=== PATIENT | female | born 1930 | race Caucasian/White ===

== ENCOUNTER 2017-12-30 17:46 | Emergency (ER) | payer OTHER ==
[~2017-12-30] VITALS: Ht 149.9 cm; Wt 52.2 kg
[~2017-12-30 17:46] MED LIST: ADULT LOW DOSE81 MG PO; CALCIUM 500 WI1 EAC3 PO; COD LIVER OIL1 EACH PO; COMBIVENT INH; CRESTOR10 MG PO; LEVOXYL75 MCG PO; MULTIVITAMINS; PREDNISONE 10 M10 M1 PO; PRILOSEC 20 MG20 MG PO; PURINETHOL50 MG PO; SYNTHROID88 MCG PO; VITAMINC500 PO; ZETIA10 MG PO; [UNRECOGNIZED DRUG - OTHER]
[2017-12-30] MEDS ORDERED: NORVASC5 MG PO (17:57)
[2017-12-30] MEDS ORDERED: ASPIR 8181 MG PO (17:58)
[2017-12-30 18:39] LABS: HEMATOCRIT 41.1 % (37.0-47.0); HEMOGLOBIN 13.6 gm/dL (12.0-15.0); MCH 29.7 pg (26.0-34.0); MCHC 33.1 g/dL (28.0-37.0); MCV 89.6 fL (80.0-100.0); MPV 8.6 fl. (7.2-11.1); NUCLEATED RBCS 0 /100WBC; PLATELET COUNT* 351 thou/uL (150-400); RBC 4.59 mil/uL (4.20-5.00); RDW-CV 13.8 % (10.5-14.5); WBC 13.6 thou/uL (4.0-11.0)
[2017-12-30 18:43] LABS: ANION GAP 11 mmol/L (7-16); BUN 13 mg/dL (7-18); CALCIUM 8.7 mg/dL (8.5-10.1); CHLORIDE 98 mmol/L (98-107); CO2 28 mmol/L (21-32); CREATININE 0.6 mg/dL (0.6-1.3); GLUCOSE 104 mg/dL (70-99); POTASSIUM 3.6 mmol/L (3.5-5.1); SODIUM 137 mmol/L (136-145)
[2017-12-30 18:54] LABS: ALBUMIN 3.8 g/dL (3.4-5.0); ALKALINE PHOSPHATASE 71 U/L (46-116); LIPASE 68 U/L (73-393); NT-PRO BRAIN NAT PEPTIDE 346 pg/mL (<300); SGOT 27 U/L (15-37); SGPT 23 U/L (30-65); TOTAL BILIRUBIN 0.6 mg/dL (<0.1-1.0); TROPONIN-I LEVEL <0.06 ng/mL (<0.06)
[2017-12-30 19:14] LABS: INFLUENZA A ANTIGEN None Detected (None Detect); INFLUENZA B ANTIGEN None Detected (None Detect)
[2017-12-30 19:29] LABS: ABSOLUTE EOSINOPHILS 0.1 thou/uL (0.0-0.7); ABSOLUTE LYMPHOCYTES 2.4 thou/uL (0.8-5.3); ABSOLUTE MONOCYTES 0.5 thou/uL (0.0-1.2); ABSOLUTE NEUTROPHILS 10.5 thou/uL (1.6-8.1); ATYPICAL LYMPHS 5 %; PLATELET ESTIMATE ADEQUATE
[2017-12-30 19:43] LABS: URINE BILIRUBIN NEGATIVE (Negative); URINE BLOOD NEGATIVE (Negative); URINE CLARITY CLEAR; URINE COLOR YELLOW; URINE GLUCOSE-RANDOM NEGATIVE (Negative); URINE KETONES TRACE (Negative); URINE LEUKOCYTES-REFLEX TRACE (Negative); URINE NITRITE-REFLEX NEGATIVE (Negative); URINE PROTEIN NEGATIVE (Negative); URINE SPECIFIC GRAVITY <= 1.005 (1.005-1.030); URINE UROBILINOGEN 0.2 E.U./dl (0.2-1.0)
[2017-12-30 19:51] LABS: BACTERIA-REFLEX None Seen /HPF (None Seen); CASTS None Seen /LPF (None Seen); CRYSTALS None Seen /LPF (None Seen); SQUAMOUS 4-10 Moderate /LPF (0-3); URINE RBC None Seen /HPF (0-2); URINE WBC-REFLEX 0-5 Rare /HPF (0-5)
[2017-12-30] MEDS ORDERED: ACYCLOVIR 400400 MG PO (20:19)
[2017-12-30] MEDS ORDERED: ZOVIRAX5 GM TOP (20:19)
[2017-12-30 20:24] VITALS: BP 120/59
--- NOTE | 2017-12-31 16:34 | EKG ---
[place] [address] ELECTROCARDIOGRAM REPORT Name: UYEN SAENZ Room: [facility]#: [id number] Admission: 12/30/17 Attend Phys: Discharge: 12/30/17 Date of : [birth year] Report #: [id number] THIS REPORT FOR: //name// [facility] ED Test Date: 2017-12-30 Test Time: 17:55:18 Pat Name: UYEN SAENZ Department: Room: Gender: F Copy Messenger: Natacha DOWNING : 1930 Requested By: Jaylen Lam Order Number: [id number] MD: Neo Sutherland Measurements Intervals [place] Rate: 87 P: 73 [place]: 171 QRS: 20 QRSD: 89 T: 133 QT: 385 QTc: 463 Interpretive Statements Sinus rhythm Borderline T abnormalities, lateral leads Compared to ECG 08/31/2013 16:22:31 T-wave abnormality now present Myocardial infarct finding no longer present Electronically Signed On 12-31-2017 16:34:08 PROPERTY SITE MANAGER by Neo Sutherland [email or web address] <ELECTRONICALLY SIGNED> By: Gary Sutherland MD, [facility] 12/31/17 1634 1755 1755 Gary Sutherland MD, [facility] /EPI
== END 2017-12-30 20:27 | disposition home or self-care (01) ==
LOC: M.ERS 17:46
PROVIDERS: Emergency Medicine
DX: R53.1 Weakness (principal); I10 Essential (primary) hypertension; E86.0 Dehydration; R51 Headache; Z90.710 Acquired absence of both cervix and uterus; Z98.890 Other specified postprocedural states; Z88.5 Allergy status to narcotic agent; Z88.0 Allergy status to penicillin

== ENCOUNTER 2018-02-08 15:06 | Inpatient (IN) | payer OTHER ==
[~2018-02-08] VITALS: Ht 144.8 cm; Wt 49.9 kg
[~2018-02-08 15:06] MED LIST changes: +ACYCLOVIR 400400 MG PO; +ASPIR 8181 MG PO; +NORVASC5 MG PO; +ZOVIRAX5 GM TOP
[2018-02-08 15:14] VITALS: BP 146/56
[2018-02-08 15:51] LABS: ABSOLUTE BASOPHILS 0.1 thou/uL (0.0-0.2); ABSOLUTE EOSINOPHILS 0.2 thou/uL (0.0-0.7); ABSOLUTE LYMPHOCYTES 1.1 thou/uL (0.8-5.3); ABSOLUTE MONOCYTES 0.7 thou/uL (0.0-1.2); ABSOLUTE NEUTROPHILS 6.1 thou/uL (1.6-8.1); BASOPHILS 0.9 %; EOSINOPHILS 2.9 %; HEMATOCRIT 38.2 % (37.0-47.0); LYMPHOCYTES 13.6 %; MCH 30.4 pg (26.0-34.0); MCHC 34.1 g/dL (28.0-37.0); MCV 89.3 fL (80.0-100.0); MPV 8.4 fl. (7.2-11.1); NUCLEATED RBCS 0 /100WBC; PLATELET COUNT* 306 thou/uL (150-400); POLYS 74.6 %; RBC 4.28 mil/uL (4.20-5.00); RDW-CV 13.9 % (10.5-14.5); WBC 8.2 thou/uL (4.0-11.0)
[2018-02-08 16:03] LABS: APTT 25.6 Seconds (25.0-31.3); PROTIME 10.1 Seconds (9.20-11.50)
[2018-02-08 16:05] LABS: ANION GAP 8 mmol/L (7-16); BUN 26 mg/dL (7-18); CALCIUM 8.6 mg/dL (8.5-10.1); CHLORIDE 102 mmol/L (98-107); CO2 30 mmol/L (21-32); CREATININE 0.7 mg/dL (0.6-1.3); GLUCOSE 116 mg/dL (70-99); POTASSIUM 3.5 mmol/L (3.5-5.1); SODIUM 140 mmol/L (136-145)
[2018-02-08 16:25] LABS: ALBUMIN 3.5 g/dL (3.4-5.0); ALKALINE PHOSPHATASE 76 U/L (46-116); CK-MB MASS 2.7 ng/mL (<0.5-3.6); NT-PRO BRAIN NAT PEPTIDE 414 pg/mL (<300); SGOT 24 U/L (15-37); SGPT 22 U/L (30-65); TOTAL BILIRUBIN 0.3 mg/dL (<0.1-1.0); TOTAL PROTEIN 7.3 g/dL (6.4-8.2); TROPONIN-I LEVEL <0.06 ng/mL (<0.06)
[2018-02-08 16:58] LABS: URINE BILIRUBIN NEGATIVE (Negative); URINE BLOOD NEGATIVE (Negative); URINE CLARITY CLEAR; URINE COLOR YELLOW; URINE GLUCOSE-RANDOM NEGATIVE (Negative); URINE KETONES NEGATIVE (Negative); URINE LEUKOCYTES-REFLEX NEGATIVE (Negative); URINE NITRITE-REFLEX NEGATIVE (Negative); URINE PROTEIN NEGATIVE (Negative); URINE UROBILINOGEN 0.2 E.U./dl (0.2-1.0)
[2018-02-08 19:55] VITALS: BP 152/70
[2018-02-08 20:38] VITALS: BP 170/69
[2018-02-09] VITALS (9 sets, daily range): BP systolic 76–171; BP diastolic 49–84
[2018-02-09 05:28] LABS: ABSOLUTE BASOPHILS 0.1 thou/uL (0.0-0.2); ABSOLUTE EOSINOPHILS 0.4 thou/uL (0.0-0.7); ABSOLUTE LYMPHOCYTES 1.8 thou/uL (0.8-5.3); ABSOLUTE MONOCYTES 0.8 thou/uL (0.0-1.2); BASOPHILS 0.9 %; EOSINOPHILS 5.8 %; HEMATOCRIT 37.9 % (37.0-47.0); HEMOGLOBIN 12.7 gm/dL (12.0-15.0); LYMPHOCYTES 25.4 %; MCH 30.1 pg (26.0-34.0); MCHC 33.6 g/dL (28.0-37.0); MCV 89.6 fL (80.0-100.0); MONOCYTES 11.3 %; MPV 8.4 fl. (7.2-11.1); NUCLEATED RBCS 0 /100WBC; PLATELET COUNT* 301 thou/uL (150-400); POLYS 56.6 %; RBC 4.23 mil/uL (4.20-5.00); RDW-CV 14.2 % (10.5-14.5)
--- NOTE | 2018-02-09 05:37 | NUR ---
PT ADMITTED TO ROOM 204 DURING THIS SHIFT; VSS, A+OX4, FULL NIH SS DONE AT ADMIT, DENIES PAIN. SHE IS ABLE TO COMMUNICATE HER NEEDS TO STAFF EFFECTIVELY. SHE HAS DENIED THE NEED FOR PAIN MEDICATION UP TO THIS TIME. NEUROLOGY CONSULT ORDERED; PT STATES THAT SHE HAS SEEN DR. MCKEON IN THE PAST FOR OCC. MIGRAINES.
[2018-02-09 05:40] LABS: CALCIUM 8.4 mg/dL (8.5-10.1); CREATININE 0.7 mg/dL (0.6-1.3); POTASSIUM 3.6 mmol/L (3.5-5.1)
[2018-02-09 05:42] LABS: CHOLESTEROL 161 mg/dL (<200); HDL CHOLESTEROL 45 mg/dL (>40); LDL CHOLESTEROL 96 mg/dL (<100); TC:HDL 3.6 Ratio (Not establshd); TRIGLYCERIDE 102 mg/dL (<150); VLDL 20 mg/dL (<40)
[2018-02-09 05:44] LABS: SERUM ASSESSMENT CLEAR
--- NOTE | 2018-02-09 07:55 | NUR ---
RECIEVED REPORT FROM JYOTI AND ASSUMED CARE OF PT @ 5644. PT IS A/O X 4, VSS, LUNGS ARE CLEAR DIMINSHED, TRACING SR ON MONITOR. PT STATES LAST BM WAS YESTERDAY MORNING. IV RIGHT FOREARM PATENT RUNNING NS @ 80ML/HR. PT IS CALM AND COOPERATIVE WITH NO C/O PAIN AT TIME OF ASSESSMENT. PT IS UP SBA WITH WALKER WITH BRP. PT WAS LEFT RESTING IN BED WITH CALL LIGHT AND FALL PRECAUTIONS IN PLACE. PT IS WAITING TO SEE NEUROLOGY THIS MORNING. WILL CONTINUE TO MONITOR.
--- NOTE | 2018-02-09 09:34 | NUR ---
CM ASSESSMENT: Pt is A&O. Resides at home alone. Independent with ADLs, continues to drive. Pt has a cane that she uses for mobility. No hx of HH or SNF. Supportive friends and family. Neuro consult pending. Possible dc home today. Following for disposition.
--- NOTE | 2018-02-09 09:37 | EKG ---
[place] [address] ELECTROCARDIOGRAM REPORT Name: UYEN SAENZ Room: [address] ADM IN [facility].#: [id number] Admission: 02/08/18 Attend Phys: Michael Molina MD Discharge: Date of : [birth year] Report #: [id number] THIS REPORT FOR: //name// [facility] ED Test Date: 2018-02-08 Test Time: 15:27:53 Pat Name: UYEN SAENZ Department: Room: [facility] Gender: F [employer] Assistant Football Coach: MUKESH Manzano : 1930 Requested By: Ruslan Sosa Order Number: [id number] MD: Rom Abbott Measurements Intervals [place] Rate: 78 P: 81 [place]: 177 QRS: 22 QRSD: 86 T: 72 QT: 396 QTc: 452 Interpretive Statements Sinus rhythm nonspecific st changes Compared to ECG 12/30/2017 17:55:18 T-wave abnormality no longer present Electronically Signed On 02-09-2018 9:37:35 CDT by Rom Abbott [email or web address] <ELECTRONICALLY SIGNED> By: Rom Abbott MD, [facility] 02/09/18 0937 1527 1527 Rom Abbott MD, [facility] /EPI
--- NOTE | 2018-02-09 12:33 | 2DMMODE ---
[place] [address] 2 D/M-MODE ECHOCARDIOGRAM Name: UYEN SAENZ Room: [address] IN [facility]#: [id number] Admission: 02/08/18 Attend Phys: Michael Molina, Discharge: Date of : [birth year] Date of Service: 02/09/18 1233 Report #: [id number] THIS REPORT FOR: //name// APPROVED REPORT Study performed: 02/09/2018 10:05:57 EXAM: Comprehensive 2D, Doppler, and color-flow Echocardiogram Patient Location: In-Patient Room #: [facility] Status: routine BSA: 1.39 HR: 72 bpm BP: 139/84 mmHg Rhythm: NSR Other Information Study Quality: Good Indications CVA/TIA Echo Enhancing Agent Indication: Rule out Shunt Agent(s) / Amount(s) Used: Agitated Saline 10 cc 2D Dimensions LVEF(%): 74.35 (>50%) IVSd: 15.70 (7-11mm) LVOT Diam: 19.20 (18-24mm) LVDd: 34.67 mm PWd: 10.13 (7-11mm) Ascending Ao: 24.97 (22-36mm) LVDs: 20.02 (25-40mm) Aortic Root: 30.21 mm Delacruz's LVEF: 74.35 % Volumes Left Atrial Volume (Systole) LA ESV Index: 52.50 mL/m2 Aortic Valve AoV Peak Pravin.: 1.07 m/s AO Peak Gr.: 4.59 mmHg LVOT Max P.93 mmHg AO Mean Gr.: 2.76 mmHg LVOT Mean P.56 mmHg LVOT Max V: 0.86 m/s AO V2 VTI: 24.79 cm LVOT Mean V: 0.58 m/[place] [address] 2 D/M-MODE ECHOCARDIOGRAM Name: UYEN SAENZ Room: [address] IN .R.#: [id number] Admission: 02/08/18 Attend Phys: Michael Molina, Discharge: Date of : [birth year] Date of Service: 02/09/18 1233 Report #: [id number] MARC (VTI): 2.55 cm2 LVOT V1 VTI: 21.85 cm Mitral Valve MV Mean Gr.: 2.44 mmHg E/A Ratio: 0.52 MV Decel. Time: 291.52 ms MV E Max Pravin.: 0.62 m/s MV PHT: 84.54 ms MVA (PHT): 2.60 cm2 TDI E/Lateral E': 7.75 E/Medial E': 10.33 Medial E' Pravin.: 0.06 m/s Lateral E' Pravin.: 0.08 m/s Pulmonary Valve PV Peak Pravin.: 0.84 m/s PV Peak Gr.: 2.82 mmHg Left Ventricle The left ventricle is normal size. There is normal LV segmental wall motion. Mild concentric left ventricular hypertrophy. Left ventricular systolic function is normal. The left ventricular ejection fraction is within the normal range. No left ventricle thrombus noted on this study. LVEF is 60-65%. Grade I - abnormal relaxation pattern. Right Ventricle The right ventricle is normal size. The right ventricular systolic function is normal. Atria Left atrium is severely dilated. Interatrial septum is intact without evidence of ASD or PFO.Negative bubble study The right atrium size is normal. Aortic Valve Aortic valve is thickened but has adequate excursion. No aortic regurgitation is present. There is no aortic valvular stenosis. Mitral Valve severe mitral annular calcification. Trace mitral regurgitation. No evidence of mitral valve stenosis. Tricuspid Valve The tricuspid valve is normal in structure. Unable to assess PA pressure. [place] [address] 2 D/M-MODE ECHOCARDIOGRAM Name: UYEN SAENZ Room: [address] [place] M.R.#: [id number] Admission: 02/08/18 Attend Phys: Michael Molina, Discharge: Date of : [birth year] Date of Service: 02/09/18 1233 Report #: [id number] Pulmonic Valve The pulmonary valve is normal in structure. Trace pulmonic regurgitation. Great Vessels The aortic root is normal in size. IVC is normal in size and collapses with >50% inspiration Pericardium There is no pericardial effusion. <Conclusion> LVEF is 60-65%. There is normal LV segmental wall motion. Grade I - abnormal relaxation pattern. Left atrium is severely dilated. Interatrial septum is intact without evidence of ASD or PFO.Negative bubble study severe mitral annular calcification. Trace mitral regurgitation. No evidence of mitral valve stenosis. Aortic valve is thickened but has adequate excursion. There is no aortic valvular stenosis. No aortic regurgitation is present. <ELECTRONICALLY SIGNED> By: Josué Ortega MD, FACC 02/09/18 1233 1233 1233 Josué Ortega MD, FACC /INF
--- NOTE | 2018-02-09 18:49 | NUR ---
PT'S DISCHARGE HELD PER DR. MCKEON'S ORDERS. DR. MCKEON CONCERNED WITH PT'S BP FLUCTUATIONS AND WANTS PT TO HAVE TEMPORAL ARTERY BIOPSY. NEW ORDERS RECIVED. PT INFORMED OF PLAN. PT PROGRESSING TOWARDS GOALS. SURGERY CONSULT PLACED FOR BIOPSY. PT REMIANS ON RA. PT REMAINS ALERT AND ORIENTED. PT HAS HAD NO COMPLAINTS OF PAIN OR DISCOMFORT THIS SHIFT. PT IS UP WITH ASSISTANCE AND WALKER TO BATHROOM. CALL LIGHT IS WITHIN REACH. WILL CONTINUE TO MONITOR FOR DURATION OF SHIFT.
[2018-02-09] MEDS ORDERED: AMLODIPINE BESY10 MG PO (20:27)
[2018-02-10] VITALS: BP 138/65
[2018-02-10 02:11] LABS: GLYCOHEMOGLOBIN (HGB A1C) 5.4 % (4.8-5.6)
--- NOTE | 2018-02-10 02:39 | NUR ---
ASSUMED CARE OF PT AT 1900. PT IS ALERT AND ORIENTED. BLOOD PRESSURE WAS ELEVATED. PT RECIEVED HYDRALAZINE FOR HIGH BLOOD PRESSURE. NO COMPLAINTS OF PAIN. NO SYMPTOMS OF GARBLED SPEECH OR STROKE SYMPTOMS. PT IS IN SINUS RYTHM ON THE TELEMETRY. NIH IS 0. PT IS SLEEPING COMFORTABLY IN BED. RESPIRATIONS ARE EVEN AND NONLABORED. WILL CONTINUE TO MONITOR PT.
--- NOTE | 2018-02-10 03:15 | NUR ---
PT STATES THAT SHE DOES NOT WANT TO GO THROUGH WITH THE TEMPERAL ARTERY BIOPSY SCHEDULED FOR TODAY. SURGERY WAS NOTIFIED. SURGERY SAID TO HAVE PT FOLLOW UP OUTPT IS SYMPTOMS PERSIST AND SHE DECIDES THAT SHE WANTS TO HAVE THE BIOPSY.
[2018-02-10 04:00] VITALS: BP 106/59
[2018-02-10 08:00] VITALS: BP 104/60
--- NOTE | 2018-02-10 11:45 | NUR ---
ASSUMED PT CARE AT 0700 PT IS ALERT AND ORIENTED X 4 PT DENIES PAIN OR SOA ON RA, PT IS UP WITH SBA PT IS NOT A FALL RISK, PT REFUSED TEMPORAL ARTERY BIOPSY NOTIFIED SURGERY, DR MCKEON NEPHROLOGY, AND DR MIRELES WHO STATES PT CAN EAT AND TO FOLLOW UP WITH BEHAVIORAL INTERVENTION SPECIALIST, SURGERY CALLED BACK AND STATES THEY WERE AWARE PT REFUSED PROCEDURE AND HAVE PT FOLLOW UP OUTPATIENT IF SYMPTOMS GET WORSE, PT IS SR ON THE MONITOR, PT WILL DISCHARGE TODAY, WILL CONTINUE TO MONITOR
[2018-02-10 12:00] VITALS: BP 115/59
[2018-02-10] MEDS ORDERED: PREDNISONE 5 MG5 M1 PO (12:01)
[2018-02-10 12:02] VITALS: BP 117/49
--- NOTE | 2018-02-16 19:10 | CON ---
[address] [address] CONSULTATION Name: UYEN SAENZ Room: [address] IN M.R.#: [id number] Admission: 02/08/18 Attend Phys: Michael Molina MD Discharge: 02/10/18 Date of : [birth year] Report #: [id number] THIS REPORT FOR: //name// CC: Michael Marie DATE OF SERVICE: 02/09/2018 HISTORY OF PRESENT ILLNESS: This is an 87-year-old female patient who was evaluated by me because the patient is having episode where she feels her vision becomes altered. She feels she is looking through the kaleidoscope. This is going on from the last year and they are becoming more severe and more frequent. She was diagnosed with ocular migraine. The episode has become more severe. There are no associated focal neurological deficits. She has no headache associated with it. She said she saw me in the office. I do not remember the workup in this patient, but I will try to look for it. We did do an MRA on her and she probably had an MRI some other place. That MRA was unremarkable. REVIEW OF SYSTEMS: Also positive for prior laminectomy. She also had hysterectomy, , history of hypertension, history of ulcerative colitis and liver biopsy. She takes only baby aspirin because of her history of ulcerative colitis. I carried out 14-point review of systems. Does not look like she has any new ENT, cardiac, respiratory, GI, , constitutional, dermatological, hematological, psychiatric, throat, allergic, endocrine symptoms. She does have prior musculoskeletal symptoms. PAST MEDICAL HISTORY: Positive for similar episode where she gets speech difficulty. FAMILY HISTORY: Negative for early age stroke. SOCIAL HISTORY: She drinks alcohol on special occasions and does not smoke. PHYSICAL EXAMINATION: GENERAL: Indicate she is alert. She is responsive. She is oriented. Her speech, concentration, fund of knowledge and memory is at her baseline. NEUROLOGIC: Cranial nerve examination 2-12 looks unremarkable. She has symmetrical strength, sensation, reflexes and tone in all 4 extremities. I did not make the patient walk. There is no meningeal sign. There is no carotid bruit. There is no thyroid mass. Pulses in the lower extremities are difficult to feel. She has no cerebellar sign. She has no edema, cyanosis or jaundice. HEENT: She is moderately built individual who does not have any dysmorphic features of eyes, ears and face. Her vision and hearing looks pretty good for the patient's age. CARDIAC: Does not appear to be showing any atrial fibrillation or any abnormality of the heart sounds, no respiratory difficulty [place] [address] CONSULTATION Name: UYEN SAENZ Room: [address] [place] M.R.#: [id number] Admission: 02/08/18 Attend Phys: Michael Molina MD Discharge: 02/10/18 Date of : [birth year] Report #: [id number]. LABORATORY DATA: Her white count is 7.0. Her sed rate is 50 and in 2009 sed rate was 120 and it has been persistently elevated. IMPRESSION: Although the patient's eye symptom may be consistent with ocular migraine, but that is a diagnosis of exclusion. The worrisome feature is that she also has difficulty with speech along with it and her sedimentation rate is elevated. Because of elevated sedimentation rate, I think the possibility of temporal arteritis need to be excluded in this patient. The patient wants to go home, so I had a long talk with her and later on she agreed to stay in the hospital to let us complete the workup. RECOMMENDATIONS: 1. I will go through the office and try to pull out her old chart. 2. She needs rheumatology consult, but no bookseamer blindstitch come here and she need to get it as an outpatient. 3. I will get an MRI repeated in this patient. 4. I will get an EEG done in this patient. 5. She needs a lipid profile to see if there is any need for a statin. It has been sent and we will await that. She did have a B12 level one time and it was normal and we will just repeat that. Rest of the workup will depend upon the outcome of this testing and we will discuss that with you. Thank you very much for this referral. <ELECTRONICALLY SIGNED> By: Volodymyr Tran MD 02/16/18 1910 0934 1002Volodymyr Tran MD /nt
--- NOTE | 2018-02-16 19:10 | EEG ---
[address] [address] EEG STUDY REPORT Name: UYEN SAENZ Room: [address] IN M.R.#: [id number] Admission: 02/08/18 Attend Phys: Michael Molina MD Discharge: 02/10/18 Date of : [birth year] Report #: [id number] THIS REPORT FOR: //name// CC: Michael Marie DATE OF SERVICE: 02/09/2018 This patient is being evaluated for episodes of speech difficulty as well as episode of visual disturbances. This patient's EEG was done by placing the electrodes by standard 10/20 system of electrode placement. Both referential and sequential montages were used for recording. Background activity in this patient's EEG is about 9-10 Hz and 30 microvolt. The patient went to sleep that is associated with bilaterally symmetrical sleep spindle and vertex sharp waves. Photic stimulation is unremarkable. Throughout the record, no active epileptiform activity was noticed. IMPRESSION: This patient's EEG is within normal limit. Thank you very much for this referral. <ELECTRONICALLY SIGNED> By: Volodymyr Tran MD 02/16/18 1910 1019 1030Volodymyr Tran MD /nt
== END 2018-02-10 13:33 | disposition home or self-care (01) | DRG 545 ==
LOC: M.ERS 15:06 → M.2W 16:50 → M.TBA-ER 16:50 → M.2W 20:10
PROVIDERS: Family Medicine; ADMIT Internal Medicine
DX: M31.6 Other giant cell arteritis (principal); G93.40 Encephalopathy, unspecified; J98.11 Atelectasis; I95.1 Orthostatic hypotension; I10 Essential (primary) hypertension; K21.9 Gastro-esophageal reflux disease without esophagitis; G43.909 Migraine, unspecified, not intractable, without status migrainosus; M19.90 Unspecified osteoarthritis, unspecified site; H53.9 Unspecified visual disturbance; Z79.82 Long term (current) use of aspirin; Z79.899 Other long term (current) drug therapy; Z90.710 Acquired absence of both cervix and uterus; Z90.49 Acquired absence of other specified parts of digestive tract; Z88.6 Allergy status to analgesic agent; Z88.0 Allergy status to penicillin